=== PATIENT | female | born 1945 | race Caucasian/White ===

== ENCOUNTER 2018-07-04 19:47 | Inpatient (IN) | payer MEDICAID, OTHER ==
[2018-07-04 19:58] LABS: ADD MAN DIFF? NO
[2018-07-04] MEDS ORDERED: NITROGLYCERIN (SL) 0.4 MG TAB SL (20:00)
[2018-07-04 20:04] LABS: WHITE BLOOD COUNT 11.4 10^3/ul (4.8-10.8)
[2018-07-04 20:04] LABS: BASOPHILS % 0.3 % (0.0-2.0); EOSINOPHILS # 0.1 10^3/ul (0.0-0.5); EOSINOPHILS % 1.2 % (0.0-7.0); HEMATOCRIT 34.6 % (37.0-47.0); HEMOGLOBIN 10.4 g/dl (12.0-16.0); LYMPHOCYTES # 2.6 10^3/ul (0.8-2.9); LYMPHOCYTES % 22.8 % (15.0-51.0); MEAN CORPUSCULAR HGB CONC 30.1 g/dl (32.0-37.0); MEAN CORPUSCULAR VOLUME 76.5 fl (82.0-101.0); MEAN PLATELET VOLUME 9.6 fl (7.4-10.4); MONOCYTES % 8.6 % (0.0-11.0); NEUTROPHIL # 7.5 10^3/ul (1.6-7.5); PLATELET COUNT 328 10^3/UL (140-415); RED BLOOD COUNT 4.52 10^6/ul (4.20-5.40); RED CELL DISTRIBUTION WIDTH 18.6 % (11.5-14.5)
[2018-07-04] MEDS: ALBUTEROL 0.083% (NEB) 2.5 MG/3 ML AMP HHN (20:05)
[2018-07-04] MEDS: IPRATROPIUM (NEB) 0.5 MG/2.5 ML AMP HHN (20:05)
[2018-07-04 20:17] LABS: ANION GAP 9 (5-13); BLOOD UREA NITROGEN 14 mg/dl (7-20); CALCIUM 9.2 mg/dl (8.4-10.2); CARBON DIOXIDE 34 mmol/L (21-31); CHLORIDE 98 mmol/L (97-110); CREATININE 0.52 mg/dl (0.44-1.00); Estimated GFR > 60 mL/min (>60); GLUCOSE 152 mg/dl (70-220); POTASSIUM 3.6 mmol/L (3.5-5.1); SODIUM 141 mmol/L (135-144)
[2018-07-04 20:29] LABS: TROPONIN-I < 0.012 ng/ml (0.000-0.120)
[2018-07-04 20:56] LABS: AADO2 Arterial 272.3 mmHg (7.0-24.0); Arterial Base Excess 4.4 mmol/L (-3.0-3); Arterial Blood Gas Oxygen Sat 99.7 mmHG (95.0-98.0); Arterial COHb 0.2 % (0.0-3.0); Arterial Fraction of Oxyhgb 98.9 % (93.0-99.0); Arterial HCO3 32.7 mmol/L (22.0-26.0); Arterial MetHb 0.6 % (0.0-1.5); Arterial pCO2 69.6 mmhg (35-45); Blood Gas IEPAP 15/5; Blood Gas PS 10; MODE MASK - BIPAP; Site Right Brachial
[2018-07-04] MEDS: NITROGLYCERIN 2% 1 GM OINT PKT TD (21:41)
[2018-07-04] MEDS: ASPIRIN 81 MG TAB PO (21:41)
[2018-07-04] MEDS: FUROSEMIDE 40 MG INJ IV (21:42)
[2018-07-04] MEDS ORDERED: ONDANSETRON 4 MG INJ IV (23:00)
[2018-07-04] MEDS ORDERED: ACETAMINOPHEN 325 MG TAB PO (23:00)
[2018-07-05] MEDS ORDERED: NACL 0.9% 3 ML SYG IV
[2018-07-05] MEDS ORDERED: NITROGLYCERIN (SL) 0.4 MG TAB SL
[2018-07-05 02:29] LABS: AADO2 Arterial 82.1 mmHg (7.0-24.0); Arterial Base Excess 7.3 mmol/L (-3.0-3); Arterial Blood Gas Oxygen Sat 98.3 mmHG (95.0-98.0); Arterial COHb 0.1 % (0.0-3.0); Arterial Fraction of Oxyhgb 97.8 % (93.0-99.0); Arterial HCO3 34.2 mmol/L (22.0-26.0); Arterial MetHb 0.4 % (0.0-1.5); Arterial pCO2 61.4 mmhg (35-45); Blood Gas IEPAP 18/5; Blood Gas PS 13; MODE MASK - BIPAP; Site Right Brachial
[2018-07-05 02:44] LABS: CK-MB 0.27 ng/ml (0.0-2.4); TROPONIN-I < 0.012 ng/ml (0.000-0.120)
[2018-07-05 02:53] LABS: CREATINE KINASE < 20 IU/L (23-200)
[2018-07-05 06:10] LABS: ADD MAN DIFF? NO
[2018-07-05 06:13] LABS: BASOPHILS % 0.3 % (0.0-2.0); EOSINOPHILS # 0.1 10^3/ul (0.0-0.5); EOSINOPHILS % 1.4 % (0.0-7.0); HEMATOCRIT 31.5 % (37.0-47.0); HEMOGLOBIN 9.7 g/dl (12.0-16.0); LYMPHOCYTES # 1.7 10^3/ul (0.8-2.9); LYMPHOCYTES % 18.4 % (15.0-51.0); MEAN CORPUSCULAR HEMOGLOBIN 23.2 pg (29.0-33.0); MEAN CORPUSCULAR HGB CONC 30.8 g/dl (32.0-37.0); MEAN CORPUSCULAR VOLUME 75.4 fl (82.0-101.0); MEAN PLATELET VOLUME 10.1 fl (7.4-10.4); MONOCYTE # 0.9 10^3/ul (0.3-0.9); MONOCYTES % 9.4 % (0.0-11.0); NEUTROPHIL # 6.6 10^3/ul (1.6-7.5); NEUTROPHILS % 70.3 % (39.0-77.0); PLATELET COUNT 301 10^3/UL (140-415); RED BLOOD COUNT 4.18 10^6/ul (4.20-5.40); RED CELL DISTRIBUTION WIDTH 18.6 % (11.5-14.5)
[2018-07-05 06:13] LABS: WHITE BLOOD COUNT 9.4 10^3/ul (4.8-10.8)
[2018-07-05 06:41] LABS: ALANINE AMINOTRANSFERASE 19 IU/L (13-69); ALBUMIN 3.5 g/dl (3.3-4.9); ALKALINE PHOSPHATASE 50 IU/L (42-121); ANION GAP 7 (5-13); ASPARTATE AMINO TRANSFERASE 14 IU/L (15-46); BILIRUBIN,INDIRECT 0.5 mg/dl (0-1.1); BILIRUBIN,TOTAL 0.5 mg/dl (0.2-1.3); BLOOD UREA NITROGEN 14 mg/dl (7-20); CARBON DIOXIDE 37 mmol/L (21-31); CHLORIDE 98 mmol/L (97-110); CHOL/HDL RATIO 2.4 RATIO; CHOLESTEROL 101 mg/dl (100-200); CREATININE 0.47 mg/dl (0.44-1.00); Estimated GFR > 60 mL/min (>60); GLUCOSE 96 mg/dl (70-220); HDL CHOLESTEROL 41 mg/dl (33-92); LDL CHOLESTEROL,CALCULATED 42 mg/dl; MAGNESIUM 1.4 mg/dl (1.7-2.5); POTASSIUM 3.8 mmol/L (3.5-5.1); SODIUM 142 mmol/L (135-144); TRIGLYCERIDES 88 mg/dl (0-149)
[2018-07-05 08:07] LABS: HEMOGLOBIN A1C 7.6 % (0-5.9)
[2018-07-05] MEDS: ASPIRIN 81 MG TAB PO (09:00)
[2018-07-05] MEDS: FUROSEMIDE 40 MG INJ IV ×2 (10:44→20:25)
[2018-07-05] MEDS: LEVOFLOXACIN 500MG/D5W (PMX) 100 ML IVPB (10:44)
[2018-07-05] MEDS: HEPARIN 5,000 UNIT/1 ML VIAL SC ×2 (10:55→20:26)
[2018-07-05] MEDS: INSULIN ASPART [NOVOLOG] 3 ML PEN SC ×3 (11:27→21:05)
[2018-07-05] MEDS ORDERED: DEXTROSE 50% 50 ML SYRINGE IV ×2 (11:30)
[2018-07-05] MEDS ORDERED: GLUCOSE GEL 15 GRAM TUBE PO ×2 (11:30)
[2018-07-05] MEDS ORDERED: GLUCAGON 1 MG INJ IM (11:30)
[2018-07-05 11:49] LABS: CREATINE KINASE < 20 IU/L (23-200)
[2018-07-05 11:58] LABS: CK-MB < 0.22 ng/ml (0.0-2.4); TROPONIN-I < 0.012 ng/ml (0.000-0.120)
[2018-07-05] MEDS: METOPROLOL 100 MG TAB PO ×2 (14:32→20:24)
[2018-07-05] MEDS: RIVAROXABAN 20 MG TABLET PO (17:04)
[2018-07-05] MEDS: DILTIAZEM 30 MG TAB PO ×2 (18:50→20:24)
[2018-07-05] MEDS: ATORVASTATIN 80 MG TAB PO (20:23)
[2018-07-06] MEDS: ACCU-CHEK XX ×2 (02:00→21:55)
[2018-07-06] MEDS: PANTOPRAZOLE (EC) 40 MG TAB PO (06:34)
[2018-07-06 06:48] LABS: ADD MAN DIFF? NO
[2018-07-06 06:51] LABS: MEAN CORPUSCULAR HGB CONC 30.3 g/dl (32.0-37.0); PLATELET COUNT 292 10^3/UL (140-415); RED BLOOD COUNT 4.34 10^6/ul (4.20-5.40)
[2018-07-06 06:52] LABS: BASOPHILS % 0.3 % (0.0-2.0); EOSINOPHILS # 0.2 10^3/ul (0.0-0.5); EOSINOPHILS % 1.8 % (0.0-7.0); LYMPHOCYTES # 1.9 10^3/ul (0.8-2.9); LYMPHOCYTES % 20.6 % (15.0-51.0); MONOCYTE # 0.9 10^3/ul (0.3-0.9); MONOCYTES % 10.2 % (0.0-11.0); NEUTROPHILS % 66.8 % (39.0-77.0)
[2018-07-06 07:29] LABS: ANION GAP 5 (5-13); BLOOD UREA NITROGEN 15 mg/dl (7-20); CALCIUM 9.1 mg/dl (8.4-10.2); CARBON DIOXIDE 40 mmol/L (21-31); CHLORIDE 93 mmol/L (97-110); CREATININE 0.51 mg/dl (0.44-1.00); Estimated GFR > 60 mL/min (>60); GLUCOSE 181 mg/dl (70-220); MAGNESIUM 1.6 mg/dl (1.7-2.5); PHOSPHORUS 3.9 mg/dl (2.5-4.9); POTASSIUM 3.9 mmol/L (3.5-5.1); SODIUM 138 mmol/L (135-144)
[2018-07-06] MEDS: LEVOFLOXACIN 500MG/D5W (PMX) 100 ML IVPB (08:52)
[2018-07-06] MEDS: INSULIN ASPART [NOVOLOG] 3 ML PEN SC ×5 (08:54→21:55)
[2018-07-06] MEDS: HEPARIN 5,000 UNIT/1 ML VIAL SC ×2 (08:54→21:35)
[2018-07-06] MEDS: FUROSEMIDE 40 MG INJ IV ×2 (08:55→21:16)
[2018-07-06] MEDS: DILTIAZEM 30 MG TAB PO ×4 (08:55→21:19)
[2018-07-06] MEDS: METOPROLOL 100 MG TAB PO ×2 (08:55→21:19)
[2018-07-06] MEDS ORDERED: NON-FORMULARY/PATIENT OWN MED (Esomeprazole Mag Trihydrate (Nexium) 20 MG) PO (09:00)
[2018-07-06] MEDS ORDERED: AMLODIPINE 5 MG TAB PO (09:00)
[2018-07-06] MEDS ORDERED: VANCOMYCIN IV PER PHARMACY XX (12:00)
[2018-07-06] MEDS ORDERED: VANCOMYCIN 1 GM (PMX) 250 ML IVPB (12:00)
[2018-07-06] MEDS: VANCOMYCIN HCL 1.5 GM in SOD CHLORIDE 0.9% 250 ML IVPB (14:17)
[2018-07-06] MEDS: MAGNESIUM SULFATE 2 GM/50 ML 50 ML IVPB ×2 (18:15→21:15)
[2018-07-06] MEDS: RIVAROXABAN 20 MG TABLET PO (18:15)
[2018-07-06] MEDS: ATORVASTATIN 80 MG TAB PO (21:18)
[2018-07-06] MEDS: IPRATROPIUM (NEB) 0.5 MG/2.5 ML AMP NEB (23:11)
[2018-07-07] MEDS: ACCU-CHEK XX (01:27)
[2018-07-07] MEDS: LORAZEPAM 2 MG INJ IV (03:01)
[2018-07-07 05:48] LABS: ADD MAN DIFF? NO
[2018-07-07 05:56] LABS: WHITE BLOOD COUNT 9.8 10^3/ul (4.8-10.8)
[2018-07-07 05:56] LABS: BASOPHILS % 0.2 % (0.0-2.0); EOSINOPHILS # 0.2 10^3/ul (0.0-0.5); EOSINOPHILS % 2.3 % (0.0-7.0); HEMATOCRIT 34.1 % (37.0-47.0); HEMOGLOBIN 10.3 g/dl (12.0-16.0); LYMPHOCYTES # 1.6 10^3/ul (0.8-2.9); LYMPHOCYTES % 16.2 % (15.0-51.0); MEAN CORPUSCULAR HGB CONC 30.2 g/dl (32.0-37.0); MEAN CORPUSCULAR VOLUME 76.3 fl (82.0-101.0); MEAN PLATELET VOLUME 9.6 fl (7.4-10.4); MONOCYTES % 10.1 % (0.0-11.0); NEUTROPHILS % 70.8 % (39.0-77.0); PLATELET COUNT 309 10^3/UL (140-415); RED BLOOD COUNT 4.47 10^6/ul (4.20-5.40); RED CELL DISTRIBUTION WIDTH 18.2 % (11.5-14.5)
[2018-07-07] MEDS: PANTOPRAZOLE (EC) 40 MG TAB PO (06:06)
[2018-07-07 06:31] LABS: BLOOD UREA NITROGEN 18 mg/dl (7-20); CALCIUM 9.1 mg/dl (8.4-10.2); CHLORIDE 91 mmol/L (97-110); Estimated GFR > 60 mL/min (>60); GLUCOSE 226 mg/dl (70-220); POTASSIUM 4.1 mmol/L (3.5-5.1); SODIUM 138 mmol/L (135-144)
[2018-07-07 06:42] LABS: ANION GAP 9 (5-13)
[2018-07-07 07:00] LABS: CARBON DIOXIDE 38 mmol/L (21-31)
[2018-07-07 07:23] LABS: IRON 37 ug/dl (35-150)
[2018-07-07 07:33] LABS: % IRON SATURATION 10 % SAT (22-52); TOTAL IRON BINDING CAPACITY 387 ug/dl (241-421)
[2018-07-07] MEDS: LEVOFLOXACIN 500MG/D5W (PMX) 100 ML IVPB (08:22)
[2018-07-07] MEDS: HEPARIN 5,000 UNIT/1 ML VIAL SC ×2 (08:24→20:19)
[2018-07-07] MEDS: INSULIN ASPART [NOVOLOG] 3 ML PEN SC ×6 (08:24→20:23)
[2018-07-07] MEDS: METOPROLOL 100 MG TAB PO ×2 (08:39→20:18)
[2018-07-07] MEDS: FUROSEMIDE 40 MG INJ IV ×2 (08:39→20:17)
[2018-07-07] MEDS: DILTIAZEM 30 MG TAB PO ×4 (08:39→20:18)
[2018-07-07] MEDS: VANCOMYCIN HCL 1.25 GM in SOD CHLORIDE 0.9% 250 ML IVPB (12:21)
[2018-07-07] MEDS: RIVAROXABAN 20 MG TABLET PO (17:33)
[2018-07-07] MEDS: ACETAMINOPHEN 325 MG TAB PO (17:33)
[2018-07-07] MEDS: CEFEPIME 1GM/50 ML (PMX) 50 ML IVPB (20:16)
[2018-07-07] MEDS: ATORVASTATIN 80 MG TAB PO (20:18)
[2018-07-08] MEDS: ACCU-CHEK XX (02:00)
[2018-07-08] MEDS: PANTOPRAZOLE (EC) 40 MG TAB PO (05:23)
[2018-07-08 06:25] LABS: ADD MAN DIFF? NO
[2018-07-08 06:32] LABS: WHITE BLOOD COUNT 8.4 10^3/ul (4.8-10.8)
[2018-07-08 06:32] LABS: BASOPHILS % 0.4 % (0.0-2.0); EOSINOPHILS # 0.2 10^3/ul (0.0-0.5); EOSINOPHILS % 2.6 % (0.0-7.0); HEMATOCRIT 34.3 % (37.0-47.0); HEMOGLOBIN 10.3 g/dl (12.0-16.0); LYMPHOCYTES # 1.5 10^3/ul (0.8-2.9); MEAN CORPUSCULAR VOLUME 76.7 fl (82.0-101.0); MEAN PLATELET VOLUME 9.9 fl (7.4-10.4); MONOCYTE # 0.8 10^3/ul (0.3-0.9); NEUTROPHIL # 5.8 10^3/ul (1.6-7.5); NEUTROPHILS % 68.8 % (39.0-77.0); PLATELET COUNT 300 10^3/UL (140-415); RED BLOOD COUNT 4.47 10^6/ul (4.20-5.40); RED CELL DISTRIBUTION WIDTH 18.1 % (11.5-14.5)
[2018-07-08 06:56] LABS: ALANINE AMINOTRANSFERASE 24 IU/L (13-69); ALBUMIN 3.6 g/dl (3.3-4.9); ALBUMIN/GLOBULIN RATIO 1.12; ALKALINE PHOSPHATASE 60 IU/L (42-121); ASPARTATE AMINO TRANSFERASE 13 IU/L (15-46); BILIRUBIN,INDIRECT 0.4 mg/dl (0-1.1); BILIRUBIN,TOTAL 0.4 mg/dl (0.2-1.3); BLOOD UREA NITROGEN 21 mg/dl (7-20); CALCIUM 9.1 mg/dl (8.4-10.2); CHLORIDE 91 mmol/L (97-110); CREATININE 0.54 mg/dl (0.44-1.00); Estimated GFR > 60 mL/min (>60); GLUCOSE 198 mg/dl (70-220); POTASSIUM 3.9 mmol/L (3.5-5.1); SODIUM 139 mmol/L (135-144); TOTAL PROTEIN 6.8 g/dl (6.1-8.1)
[2018-07-08 07:03] LABS: ANION GAP 8 (5-13); B-TYPE NATRIURETIC PEPTIDE 786 PG/ML (0-125)
[2018-07-08 07:06] LABS: CARBON DIOXIDE 40 mmol/L (21-31)
[2018-07-08] MEDS: IODIXANOL LOCM 100 ML BTL (09:03)
[2018-07-08] MEDS: SOD CHLORIDE 0.9% 100 ML (09:04)
[2018-07-08] MEDS: INSULIN ASPART [NOVOLOG] 3 ML PEN SC ×7 (09:25→20:26)
[2018-07-08] MEDS: INSULIN GLARGINE [LANTus] (100 UNITS/ML) SYG SC (09:26)
[2018-07-08] MEDS: DIGOXIN 500 MCG INJ IV (09:27)
[2018-07-08] MEDS: IOHEXOL 300MG/ML 150 ML BTL (09:28)
[2018-07-08] MEDS: CEFEPIME 1GM/50 ML (PMX) 50 ML IVPB ×2 (09:30→20:20)
[2018-07-08] MEDS: ACETAZOLAMIDE 500 MG INJ IV (09:33)
[2018-07-08] MEDS: HEPARIN 5,000 UNIT/1 ML VIAL SC (09:39)
[2018-07-08] MEDS: METOPROLOL 100 MG TAB PO ×2 (09:40→20:21)
[2018-07-08] MEDS: FUROSEMIDE 40 MG TAB PO (09:40)
[2018-07-08] MEDS: DILTIAZEM 30 MG TAB PO ×4 (09:42→20:21)
[2018-07-08 11:51] LABS: AADO2 Arterial 39.4 mmHg (7.0-24.0); Allen Test ACCEPTAB; Arterial Base Excess 11.6 mmol/L (-3.0-3); Arterial Blood Gas Oxygen Sat 96.4 mmHG (95.0-98.0); Arterial COHb 0.2 % (0.0-3.0); Arterial Fraction of Oxyhgb 95.7 % (93.0-99.0); Arterial HCO3 39.3 mmol/L (22.0-26.0); Arterial MetHb 0.5 % (0.0-1.5); Arterial pCO2 69.9 mmhg (35-45); MODE NASAL CANNULA; Site Right Radial
[2018-07-08] MEDS: VANCOMYCIN HCL 1.25 GM in SOD CHLORIDE 0.9% 250 ML IVPB (12:47)
[2018-07-08] MEDS: DIGOXIN 0.125 MG TAB PO (12:48)
[2018-07-08] MEDS: LEVALBUTEROL (NEB) 0.63 MG/3 ML AMP HHN ×2 (14:00→20:51)
[2018-07-08] MEDS: IPRATROPIUM (NEB) 0.5 MG/2.5 ML AMP HHN ×2 (14:00→20:53)
[2018-07-08] MEDS: MONTELUKAST 10 MG TAB PO ×2 (14:18→20:20)
[2018-07-08] MEDS: RIVAROXABAN 20 MG TABLET PO (17:07)
[2018-07-08] MEDS: ATORVASTATIN 80 MG TAB PO (20:20)
[2018-07-08] MEDS ORDERED: BUDESONIDE (NEB) 0.5MG/2ML AMP (20:50)
[2018-07-09] MEDS: LEVALBUTEROL (NEB) 0.63 MG/3 ML AMP HHN ×4 (01:39→19:58)
[2018-07-09] MEDS: ACCU-CHEK XX (02:00)
[2018-07-09] MEDS ORDERED: BUDESONIDE (NEB) 0.5MG/2ML AMP (02:34)
[2018-07-09] MEDS: IPRATROPIUM (NEB) 0.5 MG/2.5 ML AMP HHN ×3 (02:34→19:58)
[2018-07-09 06:27] LABS: ALANINE AMINOTRANSFERASE 12 IU/L (13-69); ALBUMIN 3.5 g/dl (3.3-4.9); ALBUMIN/GLOBULIN RATIO 1.25; ALKALINE PHOSPHATASE 55 IU/L (42-121); ANION GAP 6 (5-13); ASPARTATE AMINO TRANSFERASE 16 IU/L (15-46); BILIRUBIN,INDIRECT 0.4 mg/dl (0-1.1); BILIRUBIN,TOTAL 0.4 mg/dl (0.2-1.3); BLOOD UREA NITROGEN 19 mg/dl (7-20); CALCIUM 9.3 mg/dl (8.4-10.2); CARBON DIOXIDE 34 mmol/L (21-31); CHLORIDE 96 mmol/L (97-110); CREATININE 0.67 mg/dl (0.44-1.00); Estimated GFR > 60 mL/min (>60); GLUCOSE 240 mg/dl (70-220); MAGNESIUM 2.1 mg/dl (1.7-2.5); POTASSIUM 4.5 mmol/L (3.5-5.1); SODIUM 136 mmol/L (135-144); TOTAL PROTEIN 6.3 g/dl (6.1-8.1)
[2018-07-09 06:28] LABS: B-TYPE NATRIURETIC PEPTIDE 1570 PG/ML (0-125)
[2018-07-09] MEDS: PANTOPRAZOLE (EC) 40 MG TAB PO (06:58)
[2018-07-09] MEDS: INSULIN ASPART [NOVOLOG] 3 ML PEN SC ×7 (07:51→20:43)
[2018-07-09] MEDS: INSULIN GLARGINE [LANTus] (100 UNITS/ML) SYG SC (07:52)
[2018-07-09] MEDS: ACETAZOLAMIDE 500 MG INJ IV (08:39)
[2018-07-09] MEDS: CEFEPIME 1GM/50 ML (PMX) 50 ML IVPB ×2 (08:39→20:40)
[2018-07-09] MEDS: METOPROLOL 100 MG TAB PO ×2 (08:40→20:40)
[2018-07-09] MEDS: FUROSEMIDE 40 MG TAB PO (08:40)
[2018-07-09] MEDS: DILTIAZEM 30 MG TAB PO ×4 (08:41→20:41)
[2018-07-09] MEDS: IPRATROPIUM (NEB) 0.5 MG/2.5 ML AMP NEB (09:52)
[2018-07-09 12:04] LABS: AADO2 Arterial 33.7 mmHg (7.0-24.0); Allen Test ACCEPTAB; Arterial Base Excess 7.3 mmol/L (-3.0-3); Arterial Blood Gas Oxygen Sat 94.4 mmHG (95.0-98.0); Arterial COHb 0.1 % (0.0-3.0); Arterial Fraction of Oxyhgb 93.7 % (93.0-99.0); Arterial HCO3 34.9 mmol/L (22.0-26.0); Arterial MetHb 0.6 % (0.0-1.5); Arterial pCO2 66.2 mmhg (35-45); MODE NASAL CANNULA; Site Right Radial
[2018-07-09] MEDS: VANCOMYCIN HCL 1.25 GM in SOD CHLORIDE 0.9% 250 ML IVPB (12:15)
[2018-07-09] MEDS: DIGOXIN 0.125 MG TAB PO (12:15)
[2018-07-09] MEDS: FUROSEMIDE 40 MG INJ IV (12:16)
[2018-07-09 12:51] LABS: VANCOMYCIN,TROUGH 5.6 ug/ml (10.0-20.0)
[2018-07-09] MEDS: SOD FERRIC GLUC COMPLX 125 MG in SOD CHLORIDE 0.9% 100 ML IVPB (15:22)
[2018-07-09] MEDS: RIVAROXABAN 20 MG TABLET PO (17:53)
[2018-07-09] MEDS: MONTELUKAST 10 MG TAB PO (20:40)
[2018-07-09] MEDS: ATORVASTATIN 80 MG TAB PO (20:40)
[2018-07-09] MEDS: VANCOMYCIN 1 GM 250 ML IVPB (23:15)
[2018-07-10] MEDS: LEVALBUTEROL (NEB) 0.63 MG/3 ML AMP HHN ×4 (01:58→20:24)
[2018-07-10] MEDS: ACCU-CHEK XX (02:00)
[2018-07-10] MEDS: PANTOPRAZOLE (EC) 40 MG TAB PO (05:17)
[2018-07-10] MEDS: FUROSEMIDE 40 MG INJ IV (05:17)
[2018-07-10] MEDS: INSULIN ASPART [NOVOLOG] 3 ML PEN SC ×7 (07:58→20:47)
[2018-07-10] MEDS: INSULIN GLARGINE [LANTus] (100 UNITS/ML) SYG SC (08:24)
[2018-07-10] MEDS: CEFEPIME 1GM/50 ML (PMX) 50 ML IVPB ×2 (08:55→20:44)
[2018-07-10] MEDS: DILTIAZEM 30 MG TAB PO ×4 (08:56→20:16)
[2018-07-10] MEDS: METOPROLOL 100 MG TAB PO ×2 (08:56→20:15)
[2018-07-10] MEDS: IPRATROPIUM (NEB) 0.5 MG/2.5 ML AMP HHN ×3 (09:39→20:24)
[2018-07-10] MEDS: VANCOMYCIN 1 GM 250 ML IVPB ×2 (11:29→23:14)
[2018-07-10] MEDS: SOD FERRIC GLUC COMPLX 125 MG in SOD CHLORIDE 0.9% 100 ML IVPB (13:21)
[2018-07-10] MEDS: DIGOXIN 0.125 MG TAB PO (13:24)
[2018-07-10] MEDS: RIVAROXABAN 20 MG TABLET PO (17:29)
[2018-07-10] MEDS: ACETAMINOPHEN 325 MG TAB PO (20:10)
[2018-07-10] MEDS: ATORVASTATIN 80 MG TAB PO (20:12)
[2018-07-10] MEDS: MONTELUKAST 10 MG TAB PO (20:12)
[2018-07-11] MEDS: DIPHENHYDRAMINE 25 MG CAP PO (01:43)
[2018-07-11] MEDS: LEVALBUTEROL (NEB) 0.63 MG/3 ML AMP HHN ×2 (01:45→09:06)
[2018-07-11] MEDS: ACCU-CHEK XX (02:30)
[2018-07-11 06:08] LABS: ADD MAN DIFF? NO
[2018-07-11 06:18] LABS: BASOPHILS % 0.2 % (0.0-2.0); EOSINOPHILS # 0.5 10^3/ul (0.0-0.5); EOSINOPHILS % 4.8 % (0.0-7.0); HEMATOCRIT 35.8 % (37.0-47.0); HEMOGLOBIN 10.8 g/dl (12.0-16.0); LYMPHOCYTES # 1.4 10^3/ul (0.8-2.9); LYMPHOCYTES % 14.8 % (15.0-51.0); MEAN CORPUSCULAR HEMOGLOBIN 23.2 pg (29.0-33.0); MEAN CORPUSCULAR HGB CONC 30.2 g/dl (32.0-37.0); MEAN PLATELET VOLUME 10.5 fl (7.4-10.4); MONOCYTES % 10.3 % (0.0-11.0); NEUTROPHIL # 6.6 10^3/ul (1.6-7.5); NEUTROPHILS % 69.6 % (39.0-77.0); PLATELET COUNT 262 10^3/UL (140-415); RED BLOOD COUNT 4.65 10^6/ul (4.20-5.40); RED CELL DISTRIBUTION WIDTH 18.9 % (11.5-14.5)
[2018-07-11 06:18] LABS: WHITE BLOOD COUNT 9.5 10^3/ul (4.8-10.8)
[2018-07-11] MEDS: PANTOPRAZOLE (EC) 40 MG TAB PO (06:29)
[2018-07-11] MEDS: FUROSEMIDE 40 MG INJ IV (06:29)
[2018-07-11 06:43] LABS: ALBUMIN 3.4 g/dl (3.3-4.9); ANION GAP 7 (5-13); BLOOD UREA NITROGEN 24 mg/dl (7-20); CALCIUM 9.4 mg/dl (8.4-10.2); CARBON DIOXIDE 33 mmol/L (21-31); CHLORIDE 99 mmol/L (97-110); CREATININE 0.55 mg/dl (0.44-1.00); GLUCOSE 257 mg/dl (70-220); MAGNESIUM 2.1 mg/dl (1.7-2.5); PHOSPHORUS 3.9 mg/dl (2.5-4.9); POTASSIUM 4.6 mmol/L (3.5-5.1); SODIUM 139 mmol/L (135-144)
[2018-07-11] MEDS: INSULIN GLARGINE [LANTus] (100 UNITS/ML) SYG SC ×2 (07:57→20:29)
[2018-07-11] MEDS: INSULIN ASPART [NOVOLOG] 3 ML PEN SC ×7 (07:58→20:28)
[2018-07-11] MEDS: CEFEPIME 1GM/50 ML (PMX) 50 ML IVPB ×2 (08:51→20:19)
[2018-07-11] MEDS: METOPROLOL 100 MG TAB PO ×2 (08:51→20:15)
[2018-07-11] MEDS: DILTIAZEM 30 MG TAB PO ×4 (08:51→20:15)
[2018-07-11] MEDS: IPRATROPIUM (NEB) 0.5 MG/2.5 ML AMP HHN (09:06)
[2018-07-11 11:21] LABS: VANCOMYCIN,TROUGH 13.1 ug/ml (10.0-20.0)
[2018-07-11] MEDS: DIGOXIN 0.125 MG TAB PO (12:22)
[2018-07-11] MEDS: VANCOMYCIN 1 GM 250 ML IVPB ×2 (12:22→22:41)
[2018-07-11] MEDS: SOD FERRIC GLUC COMPLX 125 MG in SOD CHLORIDE 0.9% 100 ML IVPB (12:23)
[2018-07-11] MEDS: IPRATROPIUM (NEB) 0.5 MG/2.5 ML AMP NEB (14:47)
[2018-07-11] MEDS: RIVAROXABAN 20 MG TABLET PO (17:36)
[2018-07-11] MEDS: metFORMIN 500 MG TAB PO (17:36)
[2018-07-11] MEDS: ACETAMINOPHEN 325 MG TAB PO ×2 (18:22→22:58)
[2018-07-11] MEDS: ATORVASTATIN 80 MG TAB PO (20:14)
[2018-07-11] MEDS: MONTELUKAST 10 MG TAB PO (20:14)
[2018-07-12] MEDS: ACCU-CHEK XX (01:48)
[2018-07-12 05:09] LABS: ADD MAN DIFF? NO
[2018-07-12 05:12] LABS: BASOPHILS % 0.3 % (0.0-2.0); EOSINOPHILS # 0.4 10^3/ul (0.0-0.5); EOSINOPHILS % 4.6 % (0.0-7.0); HEMATOCRIT 35.9 % (37.0-47.0); HEMOGLOBIN 10.9 g/dl (12.0-16.0); LYMPHOCYTES # 1.3 10^3/ul (0.8-2.9); LYMPHOCYTES % 13.7 % (15.0-51.0); MEAN CORPUSCULAR HEMOGLOBIN 23.4 pg (29.0-33.0); MEAN CORPUSCULAR HGB CONC 30.4 g/dl (32.0-37.0); MEAN PLATELET VOLUME 10.2 fl (7.4-10.4); MONOCYTE # 1.1 10^3/ul (0.3-0.9); MONOCYTES % 10.9 % (0.0-11.0); NEUTROPHIL # 6.8 10^3/ul (1.6-7.5); NEUTROPHILS % 70.2 % (39.0-77.0); PLATELET COUNT 315 10^3/UL (140-415); RED BLOOD COUNT 4.66 10^6/ul (4.20-5.40); RED CELL DISTRIBUTION WIDTH 19.4 % (11.5-14.5)
[2018-07-12 05:12] LABS: WHITE BLOOD COUNT 9.7 10^3/ul (4.8-10.8)
[2018-07-12] MEDS: PANTOPRAZOLE (EC) 40 MG TAB PO (05:28)
[2018-07-12] MEDS: FUROSEMIDE 40 MG INJ IV (05:31)
[2018-07-12 06:11] LABS: ALBUMIN 3.5 g/dl (3.3-4.9); ANION GAP 4 (5-13); BLOOD UREA NITROGEN 23 mg/dl (7-20); CALCIUM 9.6 mg/dl (8.4-10.2); CARBON DIOXIDE 37 mmol/L (21-31); CHLORIDE 100 mmol/L (97-110); CREATININE 0.57 mg/dl (0.44-1.00); GLUCOSE 232 mg/dl (70-220); MAGNESIUM 1.9 mg/dl (1.7-2.5); PHOSPHORUS 3.8 mg/dl (2.5-4.9); POTASSIUM 4.2 mmol/L (3.5-5.1); SODIUM 141 mmol/L (135-144)
[2018-07-12] MEDS: INSULIN ASPART [NOVOLOG] 3 ML PEN SC ×7 (07:54→21:00)
[2018-07-12] MEDS: metFORMIN 500 MG TAB PO ×2 (08:18→17:28)
[2018-07-12] MEDS: INSULIN GLARGINE [LANTus] (100 UNITS/ML) SYG SC ×3 (08:20→21:08)
[2018-07-12] MEDS: CEFEPIME 1GM/50 ML (PMX) 50 ML IVPB ×2 (09:11→20:59)
[2018-07-12] MEDS: METOPROLOL 100 MG TAB PO ×2 (09:13→21:02)
[2018-07-12] MEDS: DILTIAZEM 30 MG TAB PO ×4 (09:13→21:02)
[2018-07-12] MEDS: VANCOMYCIN 1 GM 250 ML IVPB ×2 (10:35→22:18)
[2018-07-12] MEDS: DIGOXIN 0.125 MG TAB PO (12:11)
[2018-07-12] MEDS: RIVAROXABAN 20 MG TABLET PO (17:28)
[2018-07-12] MEDS: ACETAMINOPHEN 325 MG TAB PO (18:28)
[2018-07-12] MEDS: ATORVASTATIN 80 MG TAB PO (21:01)
[2018-07-12] MEDS: MONTELUKAST 10 MG TAB PO (21:02)
[2018-07-12] MEDS: LACTOBACILLUS RHAMNOSUS CAP PO (21:02)
[2018-07-13] MEDS: IPRATROPIUM (NEB) 0.5 MG/2.5 ML AMP NEB (00:01)
[2018-07-13] MEDS: ACCU-CHEK XX (02:00)
[2018-07-13] MEDS: ACETAMINOPHEN 325 MG TAB PO ×2 (04:34→16:20)
[2018-07-13] MEDS: FUROSEMIDE 40 MG INJ IV (04:34)
[2018-07-13] MEDS: PANTOPRAZOLE (EC) 40 MG TAB PO (04:34)
[2018-07-13 06:31] LABS: ADD MAN DIFF? NO
[2018-07-13 06:35] LABS: BASOPHILS % 0.4 % (0.0-2.0); EOSINOPHILS # 0.4 10^3/ul (0.0-0.5); EOSINOPHILS % 3.5 % (0.0-7.0); HEMATOCRIT 36.4 % (37.0-47.0); HEMOGLOBIN 11.1 g/dl (12.0-16.0); LYMPHOCYTES # 1.4 10^3/ul (0.8-2.9); MEAN CORPUSCULAR HEMOGLOBIN 23.4 pg (29.0-33.0); MEAN CORPUSCULAR HGB CONC 30.5 g/dl (32.0-37.0); MEAN CORPUSCULAR VOLUME 76.8 fl (82.0-101.0); MEAN PLATELET VOLUME 9.6 fl (7.4-10.4); MONOCYTES % 10.3 % (0.0-11.0); NEUTROPHIL # 7.2 10^3/ul (1.6-7.5); NEUTROPHILS % 71.4 % (39.0-77.0); PLATELET COUNT 312 10^3/UL (140-415); RED BLOOD COUNT 4.74 10^6/ul (4.20-5.40); RED CELL DISTRIBUTION WIDTH 19.9 % (11.5-14.5)
[2018-07-13 06:35] LABS: WHITE BLOOD COUNT 10.1 10^3/ul (4.8-10.8)
[2018-07-13 07:07] LABS: MAGNESIUM 1.6 mg/dl (1.7-2.5)
[2018-07-13 07:08] LABS: ANION GAP 7 (5-13); BLOOD UREA NITROGEN 21 mg/dl (7-20); CALCIUM 9.5 mg/dl (8.4-10.2); CARBON DIOXIDE 38 mmol/L (21-31); CHLORIDE 96 mmol/L (97-110); CREATININE 0.46 mg/dl (0.44-1.00); Estimated GFR > 60 mL/min (>60); GLUCOSE 139 mg/dl (70-220); POTASSIUM 3.9 mmol/L (3.5-5.1); SODIUM 141 mmol/L (135-144)
[2018-07-13 07:10] LABS: DIGOXIN < 0.4 ng/ml (1.0-2.0)
[2018-07-13] MEDS: INSULIN ASPART [NOVOLOG] 3 ML PEN SC ×7 (07:51→20:39)
[2018-07-13] MEDS: metFORMIN 500 MG TAB PO ×2 (08:05→17:16)
[2018-07-13] MEDS: INSULIN GLARGINE [LANTus] (100 UNITS/ML) SYG SC ×2 (08:07→20:53)
[2018-07-13] MEDS: CEFEPIME 1GM/50 ML (PMX) 50 ML IVPB ×2 (08:20→20:29)
[2018-07-13] MEDS: LACTOBACILLUS RHAMNOSUS CAP PO ×2 (08:20→20:30)
[2018-07-13] MEDS: DOCUSATE SODIUM 10 MG/ML (10ML CUP) PO (08:20)
[2018-07-13] MEDS: DILTIAZEM 30 MG TAB PO ×4 (08:21→20:30)
[2018-07-13] MEDS: METOPROLOL 100 MG TAB PO ×2 (08:21→20:30)
[2018-07-13] MEDS: VANCOMYCIN 1 GM 250 ML IVPB ×2 (10:57→22:45)
[2018-07-13] MEDS: DIGOXIN 0.125 MG TAB PO (13:18)
[2018-07-13] MEDS ORDERED: GUAIFENESIN/DM 5ML CUP PO (16:00)
[2018-07-13] MEDS: RIVAROXABAN 20 MG TABLET PO (17:16)
[2018-07-13] MEDS: MONTELUKAST 10 MG TAB PO (20:30)
[2018-07-13] MEDS: MAGNESIUM OXIDE 400 MG TAB PO (20:30)
[2018-07-13] MEDS: ATORVASTATIN 80 MG TAB PO (20:30)
[2018-07-14] MEDS: ACCU-CHEK XX (02:00)
[2018-07-14] MEDS: ACETAMINOPHEN 325 MG TAB PO (04:42)
[2018-07-14] MEDS: PANTOPRAZOLE (EC) 40 MG TAB PO (04:42)
[2018-07-14] MEDS: FUROSEMIDE 40 MG INJ IV (04:44)
[2018-07-14 05:31] LABS: ADD MAN DIFF? NO
[2018-07-14 05:35] LABS: BASOPHILS % 0.4 % (0.0-2.0); EOSINOPHILS # 0.4 10^3/ul (0.0-0.5); EOSINOPHILS % 4.1 % (0.0-7.0); HEMATOCRIT 36.3 % (37.0-47.0); HEMOGLOBIN 10.9 g/dl (12.0-16.0); LYMPHOCYTES # 1.4 10^3/ul (0.8-2.9); LYMPHOCYTES % 14.4 % (15.0-51.0); MEAN CORPUSCULAR HEMOGLOBIN 23.3 pg (29.0-33.0); MEAN CORPUSCULAR VOLUME 77.6 fl (82.0-101.0); MEAN PLATELET VOLUME 10.1 fl (7.4-10.4); MONOCYTE # 0.9 10^3/ul (0.3-0.9); MONOCYTES % 9.9 % (0.0-11.0); NEUTROPHIL # 6.8 10^3/ul (1.6-7.5); NEUTROPHILS % 70.9 % (39.0-77.0); PLATELET COUNT 307 10^3/UL (140-415); RED BLOOD COUNT 4.68 10^6/ul (4.20-5.40)
[2018-07-14 05:35] LABS: WHITE BLOOD COUNT 9.5 10^3/ul (4.8-10.8)
[2018-07-14 05:59] LABS: ANION GAP 7 (5-13); BLOOD UREA NITROGEN 23 mg/dl (7-20); CALCIUM 9.4 mg/dl (8.4-10.2); CARBON DIOXIDE 35 mmol/L (21-31); CHLORIDE 98 mmol/L (97-110); CREATININE 0.48 mg/dl (0.44-1.00); Estimated GFR > 60 mL/min (>60); GLUCOSE 155 mg/dl (70-220); POTASSIUM 4.1 mmol/L (3.5-5.1); SODIUM 140 mmol/L (135-144)
[2018-07-14 06:00] LABS: DIGOXIN 0.5 ng/ml (1.0-2.0)
[2018-07-14] MEDS: metFORMIN 500 MG TAB PO ×2 (07:59→17:03)
[2018-07-14] MEDS: INSULIN GLARGINE [LANTus] (100 UNITS/ML) SYG SC ×2 (08:04→21:12)
[2018-07-14] MEDS: INSULIN ASPART [NOVOLOG] 3 ML PEN SC ×7 (08:05→21:00)
[2018-07-14] MEDS: CEFEPIME 1GM/50 ML (PMX) 50 ML IVPB ×2 (08:48→21:07)
[2018-07-14] MEDS: MAGNESIUM OXIDE 400 MG TAB PO ×2 (08:49→21:07)
[2018-07-14] MEDS: DOCUSATE SODIUM 10 MG/ML (10ML CUP) PO (08:49)
[2018-07-14] MEDS: LACTOBACILLUS RHAMNOSUS CAP PO ×2 (08:49→21:09)
[2018-07-14] MEDS: METOPROLOL 100 MG TAB PO ×2 (08:49→21:09)
[2018-07-14] MEDS: DILTIAZEM 30 MG TAB PO ×4 (08:50→21:08)
[2018-07-14] MEDS: VANCOMYCIN 1 GM 250 ML IVPB (10:40)
[2018-07-14 10:46] LABS: VANCOMYCIN,TROUGH 10.1 ug/ml (10.0-20.0)
[2018-07-14] MEDS: DIGOXIN 0.125 MG TAB PO (12:21)
[2018-07-14] MEDS: RIVAROXABAN 20 MG TABLET PO (17:02)
[2018-07-14] MEDS: MONTELUKAST 10 MG TAB PO (21:07)
[2018-07-14] MEDS: ATORVASTATIN 80 MG TAB PO (21:08)
[2018-07-14] MEDS ORDERED: VANCOMYCIN HCL 1.25 GM in SOD CHLORIDE 0.9% 250 ML IVPB (23:00)
[2018-07-15] MEDS: VANCOMYCIN HCL 1.25 GM in SOD CHLORIDE 0.9% 250 ML IVPB ×3 (01:00→23:00)
[2018-07-15] MEDS: ACCU-CHEK XX (02:00)
[2018-07-15] MEDS: FUROSEMIDE 40 MG INJ IV (06:35)
[2018-07-15] MEDS: INSULIN ASPART [NOVOLOG] 3 ML PEN SC ×7 (07:52→21:00)
[2018-07-15] MEDS: DOCUSATE SODIUM 10 MG/ML (10ML CUP) PO (09:36)
[2018-07-15] MEDS: CEFEPIME 1GM/50 ML (PMX) 50 ML IVPB ×2 (09:36→21:21)
[2018-07-15] MEDS: DILTIAZEM (CD) 120 MG CAP PO (09:36)
[2018-07-15] MEDS: metFORMIN 500 MG TAB PO ×2 (09:36→18:17)
[2018-07-15] MEDS: LISINOPRIL 5 MG TAB PO (09:37)
[2018-07-15] MEDS: MAGNESIUM OXIDE 400 MG TAB PO ×2 (09:37→21:21)
[2018-07-15] MEDS: LACTOBACILLUS RHAMNOSUS CAP PO ×2 (09:37→21:21)
[2018-07-15] MEDS: METOPROLOL 100 MG TAB PO ×2 (09:38→21:26)
[2018-07-15] MEDS: NYSTATIN 30 GM POWDER BTL TOP ×2 (09:38→21:36)
[2018-07-15] MEDS: ACETAMINOPHEN 325 MG TAB PO (10:20)
[2018-07-15] MEDS: INSULIN GLARGINE [LANTus] (100 UNITS/ML) SYG SC ×2 (10:48→21:31)
[2018-07-15] MEDS: RIVAROXABAN 20 MG TABLET PO (18:17)
[2018-07-15] MEDS: ATORVASTATIN 80 MG TAB PO (21:21)
[2018-07-15] MEDS: MONTELUKAST 10 MG TAB PO (21:21)
[2018-07-15] MEDS: FAMOTIDINE 20 MG TAB PO (21:21)
[2018-07-16] MEDS: ACCU-CHEK XX (02:00)
[2018-07-16] MEDS: FUROSEMIDE 40 MG INJ IV (05:35)
[2018-07-16 07:55] LABS: ADD MAN DIFF? NO
[2018-07-16] MEDS: INSULIN ASPART [NOVOLOG] 3 ML PEN SC ×7 (07:57→20:45)
[2018-07-16] MEDS: metFORMIN 500 MG TAB PO ×2 (07:58→17:31)
[2018-07-16] MEDS: INSULIN GLARGINE [LANTus] (100 UNITS/ML) SYG SC ×2 (08:03→20:47)
[2018-07-16 08:04] LABS: BASOPHILS % 0.4 % (0.0-2.0); EOSINOPHILS # 0.4 10^3/ul (0.0-0.5); EOSINOPHILS % 4.4 % (0.0-7.0); HEMATOCRIT 33.9 % (37.0-47.0); HEMOGLOBIN 10.2 g/dl (12.0-16.0); LYMPHOCYTES # 1.6 10^3/ul (0.8-2.9); LYMPHOCYTES % 17.5 % (15.0-51.0); MEAN CORPUSCULAR HEMOGLOBIN 23.4 pg (29.0-33.0); MEAN CORPUSCULAR HGB CONC 30.1 g/dl (32.0-37.0); MEAN CORPUSCULAR VOLUME 77.9 fl (82.0-101.0); MEAN PLATELET VOLUME 10.4 fl (7.4-10.4); MONOCYTES % 11.3 % (0.0-11.0); NEUTROPHIL # 6.1 10^3/ul (1.6-7.5); NEUTROPHILS % 66.1 % (39.0-77.0); PLATELET COUNT 299 10^3/UL (140-415); RED BLOOD COUNT 4.35 10^6/ul (4.20-5.40); RED CELL DISTRIBUTION WIDTH 20.3 % (11.5-14.5)
[2018-07-16 08:04] LABS: WHITE BLOOD COUNT 9.2 10^3/ul (4.8-10.8)
[2018-07-16] MEDS: DOCUSATE SODIUM 10 MG/ML (10ML CUP) PO (08:15)
[2018-07-16] MEDS: MAGNESIUM OXIDE 400 MG TAB PO ×2 (08:15→20:48)
[2018-07-16] MEDS: LACTOBACILLUS RHAMNOSUS CAP PO ×2 (08:16→20:47)
[2018-07-16] MEDS: METOPROLOL 100 MG TAB PO ×2 (08:16→20:49)
[2018-07-16] MEDS: LISINOPRIL 5 MG TAB PO (08:16)
[2018-07-16] MEDS: DILTIAZEM (CD) 120 MG CAP PO (08:16)
[2018-07-16] MEDS: NYSTATIN 30 GM POWDER BTL TOP ×2 (08:17→20:50)
[2018-07-16 08:22] LABS: ANION GAP 6 (5-13); BLOOD UREA NITROGEN 21 mg/dl (7-20); CALCIUM 9.6 mg/dl (8.4-10.2); CARBON DIOXIDE 40 mmol/L (21-31); CHLORIDE 93 mmol/L (97-110); CREATININE 0.46 mg/dl (0.44-1.00); Estimated GFR > 60 mL/min (>60); GLUCOSE 78 mg/dl (70-220); MAGNESIUM 1.7 mg/dl (1.7-2.5); SODIUM 139 mmol/L (135-144)
[2018-07-16 08:22] LABS: PHOSPHORUS 4.3 mg/dl (2.5-4.9)
[2018-07-16] MEDS: ACETAMINOPHEN 325 MG TAB PO (14:24)
[2018-07-16] MEDS: RIVAROXABAN 20 MG TABLET PO (17:31)
[2018-07-16] MEDS: MONTELUKAST 10 MG TAB PO (20:48)
[2018-07-16] MEDS: ATORVASTATIN 80 MG TAB PO (20:48)
[2018-07-16] MEDS: FAMOTIDINE 20 MG TAB PO (20:48)
[2018-07-17] MEDS: ACCU-CHEK XX (01:47)
[2018-07-17] MEDS: ACETAMINOPHEN 325 MG TAB PO ×3 (02:52→20:09)
[2018-07-17] MEDS: FUROSEMIDE 40 MG INJ IV (05:28)
[2018-07-17] MEDS: INSULIN ASPART [NOVOLOG] 3 ML PEN SC ×7 (08:00→21:00)
[2018-07-17] MEDS: LISINOPRIL 5 MG TAB PO (08:39)
[2018-07-17] MEDS: LACTOBACILLUS RHAMNOSUS CAP PO ×2 (08:40→20:11)
[2018-07-17] MEDS: MAGNESIUM OXIDE 400 MG TAB PO ×2 (08:40→20:13)
[2018-07-17] MEDS: DILTIAZEM (CD) 120 MG CAP PO (08:40)
[2018-07-17] MEDS: METOPROLOL 100 MG TAB PO ×2 (08:41→20:12)
[2018-07-17] MEDS: NYSTATIN 30 GM POWDER BTL TOP ×2 (08:41→21:37)
[2018-07-17] MEDS: metFORMIN 500 MG TAB PO ×2 (08:44→17:51)
[2018-07-17] MEDS: INSULIN GLARGINE [LANTus] (100 UNITS/ML) SYG SC ×2 (08:47→20:57)
[2018-07-17] MEDS: DOCUSATE SODIUM 10 MG/ML (10ML CUP) PO (08:58)
[2018-07-17 17:01] LABS: AADO2 Arterial 13.4 mmHg (7.0-24.0); Arterial Base Excess 16.2 mmol/L (-3.0-3); Arterial Blood Gas Oxygen Sat 97.4 mmHG (95.0-98.0); Arterial COHb 0.3 % (0.0-3.0); Arterial Fraction of Oxyhgb 96.8 % (93.0-99.0); Arterial HCO3 43.5 mmol/L (22.0-26.0); Arterial MetHb 0.3 % (0.0-1.5); Arterial pCO2 67.2 mmhg (35-45); MODE NASAL CANNULA; Site LB
[2018-07-17] MEDS: RIVAROXABAN 20 MG TABLET PO (17:51)
[2018-07-17] MEDS: MONTELUKAST 10 MG TAB PO (20:11)
[2018-07-17] MEDS: ATORVASTATIN 80 MG TAB PO (20:11)
[2018-07-17] MEDS: FAMOTIDINE 20 MG TAB PO (20:11)
[2018-07-18] MEDS: ACCU-CHEK XX (01:41)
[2018-07-18] MEDS: ACETAMINOPHEN 325 MG TAB PO ×2 (06:00→14:16)
[2018-07-18] MEDS: FUROSEMIDE 20 MG TAB PO (06:01)
[2018-07-18] MEDS: INSULIN ASPART [NOVOLOG] 3 ML PEN SC ×7 (08:00→21:00)
[2018-07-18] MEDS: INSULIN GLARGINE [LANTus] (100 UNITS/ML) SYG SC ×2 (09:04→21:00)
[2018-07-18] MEDS: metFORMIN 500 MG TAB PO ×2 (09:10→17:39)
[2018-07-18] MEDS: LISINOPRIL 5 MG TAB PO (09:11)
[2018-07-18] MEDS: MAGNESIUM OXIDE 400 MG TAB PO ×2 (09:11→20:58)
[2018-07-18] MEDS: METOPROLOL 100 MG TAB PO ×2 (09:11→20:59)
[2018-07-18] MEDS: LACTOBACILLUS RHAMNOSUS CAP PO ×2 (09:11→20:57)
[2018-07-18] MEDS: DOCUSATE SODIUM 10 MG/ML (10ML CUP) PO (09:11)
[2018-07-18] MEDS: DILTIAZEM (CD) 120 MG CAP PO (09:11)
[2018-07-18] MEDS: NYSTATIN 30 GM POWDER BTL TOP ×2 (09:12→21:08)
[2018-07-18] MEDS: RIVAROXABAN 20 MG TABLET PO (17:40)
[2018-07-18] MEDS: FAMOTIDINE 20 MG TAB PO (20:57)
[2018-07-18] MEDS: ATORVASTATIN 80 MG TAB PO (20:57)
[2018-07-18] MEDS: MONTELUKAST 10 MG TAB PO (20:57)
[2018-07-19] MEDS: ACCU-CHEK XX (02:00)
[2018-07-19] MEDS: FUROSEMIDE 20 MG TAB PO (05:49)
[2018-07-19] MEDS: INSULIN ASPART [NOVOLOG] 3 ML PEN SC ×7 (08:00→21:00)
[2018-07-19] MEDS: ACETAMINOPHEN 325 MG TAB PO (08:38)
[2018-07-19] MEDS: DILTIAZEM (CD) 120 MG CAP PO (08:39)
[2018-07-19] MEDS: DOCUSATE SODIUM 10 MG/ML (10ML CUP) PO ×2 (08:39→08:56)
[2018-07-19] MEDS: MAGNESIUM OXIDE 400 MG TAB PO ×2 (08:39→21:12)
[2018-07-19] MEDS: LACTOBACILLUS RHAMNOSUS CAP PO ×2 (08:40→21:00)
[2018-07-19] MEDS: LISINOPRIL 5 MG TAB PO (08:40)
[2018-07-19] MEDS: METOPROLOL 100 MG TAB PO ×2 (08:40→21:12)
[2018-07-19] MEDS: INSULIN GLARGINE [LANTus] (100 UNITS/ML) SYG SC ×2 (08:41→21:18)
[2018-07-19] MEDS: NYSTATIN 30 GM POWDER BTL TOP ×2 (08:42→21:19)
[2018-07-19] MEDS: metFORMIN 500 MG TAB PO ×2 (08:49→17:26)
[2018-07-19 09:40] LABS: ADD MAN DIFF? NO
[2018-07-19 09:46] LABS: WHITE BLOOD COUNT 7.9 10^3/ul (4.8-10.8)
[2018-07-19 09:46] LABS: BASOPHIL # 0.1 10^3/ul (0.0-0.1); BASOPHILS % 0.6 % (0.0-2.0); EOSINOPHILS # 0.2 10^3/ul (0.0-0.5); EOSINOPHILS % 2.8 % (0.0-7.0); HEMATOCRIT 35.8 % (37.0-47.0); HEMOGLOBIN 10.6 g/dl (12.0-16.0); LYMPHOCYTES # 1.3 10^3/ul (0.8-2.9); LYMPHOCYTES % 16.9 % (15.0-51.0); MEAN CORPUSCULAR HEMOGLOBIN 23.5 pg (29.0-33.0); MEAN CORPUSCULAR HGB CONC 29.6 g/dl (32.0-37.0); MEAN CORPUSCULAR VOLUME 79.2 fl (82.0-101.0); MEAN PLATELET VOLUME 9.9 fl (7.4-10.4); MONOCYTE # 0.8 10^3/ul (0.3-0.9); MONOCYTES % 9.7 % (0.0-11.0); NEUTROPHIL # 5.5 10^3/ul (1.6-7.5); NEUTROPHILS % 69.7 % (39.0-77.0); PLATELET COUNT 315 10^3/UL (140-415); RED BLOOD COUNT 4.52 10^6/ul (4.20-5.40); RED CELL DISTRIBUTION WIDTH 19.8 % (11.5-14.5)
[2018-07-19 10:06] LABS: BLOOD UREA NITROGEN 18 mg/dl (7-20); CALCIUM 9.3 mg/dl (8.4-10.2); CHLORIDE 92 mmol/L (97-110); CREATININE 0.49 mg/dl (0.44-1.00); Estimated GFR > 60 mL/min (>60); GLUCOSE 123 mg/dl (70-220); POTASSIUM 4.2 mmol/L (3.5-5.1); SODIUM 140 mmol/L (135-144)
[2018-07-19 10:15] LABS: ANION GAP 6 (5-13); CARBON DIOXIDE 42 mmol/L (21-31)
[2018-07-19] MEDS: RIVAROXABAN 20 MG TABLET PO (17:25)
[2018-07-19] MEDS: FAMOTIDINE 20 MG TAB PO (21:11)
[2018-07-19] MEDS: ATORVASTATIN 80 MG TAB PO (21:12)
[2018-07-19] MEDS: MONTELUKAST 10 MG TAB PO (21:14)
[2018-07-20] MEDS: ACCU-CHEK XX (01:35)
[2018-07-20] MEDS: FUROSEMIDE 20 MG TAB PO (05:25)
[2018-07-20 05:40] LABS: ADD MAN DIFF? NO
[2018-07-20 05:49] LABS: WHITE BLOOD COUNT 8.5 10^3/ul (4.8-10.8)
[2018-07-20 05:49] LABS: BASOPHILS % 0.5 % (0.0-2.0); EOSINOPHILS # 0.2 10^3/ul (0.0-0.5); EOSINOPHILS % 2.4 % (0.0-7.0); HEMATOCRIT 33.5 % (37.0-47.0); HEMOGLOBIN 10.1 g/dl (12.0-16.0); LYMPHOCYTES # 1.5 10^3/ul (0.8-2.9); LYMPHOCYTES % 17.2 % (15.0-51.0); MEAN CORPUSCULAR HEMOGLOBIN 23.9 pg (29.0-33.0); MEAN CORPUSCULAR HGB CONC 30.1 g/dl (32.0-37.0); MEAN CORPUSCULAR VOLUME 79.2 fl (82.0-101.0); MEAN PLATELET VOLUME 10.2 fl (7.4-10.4); MONOCYTE # 0.9 10^3/ul (0.3-0.9); NEUTROPHIL # 5.8 10^3/ul (1.6-7.5); NEUTROPHILS % 68.5 % (39.0-77.0); PLATELET COUNT 299 10^3/UL (140-415); RED BLOOD COUNT 4.23 10^6/ul (4.20-5.40); RED CELL DISTRIBUTION WIDTH 19.5 % (11.5-14.5)
[2018-07-20 06:05] LABS: BLOOD UREA NITROGEN 23 mg/dl (7-20); CALCIUM 9.2 mg/dl (8.4-10.2); CHLORIDE 93 mmol/L (97-110); CREATININE 0.51 mg/dl (0.44-1.00); Estimated GFR > 60 mL/min (>60); GLUCOSE 88 mg/dl (70-220); POTASSIUM 4.7 mmol/L (3.5-5.1); SODIUM 138 mmol/L (135-144)
[2018-07-20 06:17] LABS: ANION GAP 6 (5-13)
[2018-07-20 06:20] LABS: CARBON DIOXIDE 39 mmol/L (21-31)
[2018-07-20 06:38] LABS: MAGNESIUM 1.8 mg/dl (1.7-2.5)
[2018-07-20 06:53] LABS: PHOSPHORUS 4.5 mg/dl (2.5-4.9)
[2018-07-20] MEDS: INSULIN ASPART [NOVOLOG] 3 ML PEN SC ×6 (08:00→17:48)
[2018-07-20] MEDS: INSULIN GLARGINE [LANTus] (100 UNITS/ML) SYG SC (08:31)
[2018-07-20] MEDS: LACTOBACILLUS RHAMNOSUS CAP PO (08:36)
[2018-07-20] MEDS: DILTIAZEM (CD) 120 MG CAP PO (08:36)
[2018-07-20] MEDS: metFORMIN 500 MG TAB PO ×2 (08:36→17:46)
[2018-07-20] MEDS: LISINOPRIL 5 MG TAB PO (08:37)
[2018-07-20] MEDS: DOCUSATE SODIUM 10 MG/ML (10ML CUP) PO (08:38)
[2018-07-20] MEDS: METOPROLOL 100 MG TAB PO (08:38)
[2018-07-20] MEDS: MAGNESIUM OXIDE 400 MG TAB PO (08:38)
[2018-07-20] MEDS: NYSTATIN 30 GM POWDER BTL TOP (08:39)
[2018-07-20] MEDS: GLUCOSE GEL 15 GRAM TUBE BUCCAL (12:26)
[2018-07-20] MEDS: RIVAROXABAN 20 MG TABLET PO (17:46)
== END 2018-07-20 18:50 | disposition home health service (06) | DRG 291 ==
LOC: PP2 07-15 00:37 → E/R 19:47 → 6WM 22:47
PROC: 5A09557 Assistance with Respiratory Ventilation, Greater than 96 Consecutive Hours, Continuous Positive Airway Pressure (ICD-10-PCS; principal; 2018-07-04)
DX: I11.0 Hypertensive heart disease with heart failure (principal); J96.02 Acute respiratory failure with hypercapnia; J96.01 Acute respiratory failure with hypoxia; Z68.41 Body mass index [BMI] 40.0-44.9, adult; L03.116 Cellulitis of left lower limb; L03.115 Cellulitis of right lower limb; E66.2 Morbid (severe) obesity with alveolar hypoventilation; I50.33 Acute on chronic diastolic (congestive) heart failure; I48.91 Unspecified atrial fibrillation; I27.20 Pulmonary hypertension, unspecified; E11.9 Type 2 diabetes mellitus without complications; D50.8 Other iron deficiency anemias; R53.81 Other malaise; R62.50 Unspecified lack of expected normal physiological development in childhood; E88.81 Metabolic syndrome and other insulin resistance; Z79.01 Long term (current) use of anticoagulants
CPT/HCPCS: 36415; 36600; 71045; 71260; 76705; 80048; 80053; 80061; 80069; 80162; 80202; 82550; 82553; 82803; 82962; 83036; 83540; 83735; 83880; 84100; 84443; 84484; 85025; 93005; 93306; 93970; 94640; 94660; 94664; 96374; 97110; 97116; 97162; 97530; 99291-25